=== PATIENT | female | born 1980 | race Caucasian/White ===

== ENCOUNTER 2016-09-30 13:27 | Day surgery (SDC) | payer BC ==
[~2016-09-30] VITALS: Ht 170.2 cm; Wt 84.5 kg
[~2016-09-30 13:27] MED LIST: DAYQUIL PO; NO HOME MEDICATIONS; PERCOCET 5/321 UDTAB PO; PRENATAL VITAMI1 TA5 PO
[2016-09-30 13:46] VITALS: BP 123/85; PULSE 73; TEMP 98.1
[2016-09-30] MEDS ORDERED: ALIGN PO (13:53)
[2016-09-30 15:05] VITALS: BP 98/66; PULSE 69; TEMP 98.3
[2016-09-30 15:20] VITALS: BP 93/62; PULSE 67
[2016-09-30 15:35] VITALS: BP 91/68; PULSE 56
[2016-09-30 15:50] VITALS: BP 91/70; PULSE 69
== END 2016-09-30 16:18 | disposition home or self-care (01) ==
LOC: SDCO 13:27
DX: C18.7 Malignant neoplasm of sigmoid colon (principal); K29.50 Unspecified chronic gastritis without bleeding; K21.9 Gastro-esophageal reflux disease without esophagitis; K92.1 Melena; K56.69 Other intestinal obstruction; D64.9 Anemia, unspecified; E66.9 Obesity, unspecified; Z83.71 Family history of colonic polyps
CPT/HCPCS: J2250; J2405; J3010; J7030

== ENCOUNTER 2016-10-14 15:22 | Inpatient (IN) | payer BC ==
[~2016-10-14] VITALS: Ht 167.6 cm; Wt 83.1 kg
[~2016-10-14 15:22] MED LIST changes: +ALIGN PO
[2016-10-18] VITALS (10 sets, daily range): BP systolic 100–126; BP diastolic 67–96; PULSE 62–102; TEMP 97.4–97.5
[2016-10-18] MEDS ORDERED: PRILOSEC 20MG20 MG PO (09:57)
[2016-10-19 01:07] VITALS: BP 97/56; PULSE 59; TEMP 98.2
[2016-10-19 03:22] VITALS: BP 98/53; PULSE 71; TEMP 98.3
[2016-10-19 07:19] LABS: CALCIUM 9.3 mg/dL (8.4-10.2); CREATININE, serum 0.84 mg/dL (0.52-1.25); MAGNESIUM 2.1 mg/dL (1.6-2.3); PHOSPHOROUS 4.3 mg/dL (2.5-4.5); POTASSIUM 4.3 mmol/L (3.4-5.0)
[2016-10-19 07:21] LABS: HEMATOCRIT 29.7 % (37.0-47.0); HEMOGLOBIN 9.6 g/dl (12.5-16.0)
[2016-10-19 10:58] VITALS: BP 103/66; PULSE 54; TEMP 97.5
[2016-10-19 14:25] VITALS: BP 100/55; PULSE 77; TEMP 98.7
[2016-10-19 18:40] VITALS: BP 121/69; PULSE 81; TEMP 98
[2016-10-19 20:46] VITALS: BP 108/66; PULSE 76; TEMP 98.3
[2016-10-20 00:02] VITALS: BP 113/68; PULSE 86; TEMP 98.6
[2016-10-20 05:39] VITALS: BP 95/68; PULSE 89; TEMP 98.2
[2016-10-20 07:06] LABS: HEMATOCRIT 27.2 % (37.0-47.0); HEMOGLOBIN 8.6 g/dl (12.5-16.0)
[2016-10-20 09:22] VITALS: BP 98/63; PULSE 73; TEMP 98
[2016-10-20] MEDS ORDERED: TYLENOL 325MG325 MG PO (11:18)
[2016-10-20 13:42] VITALS: BP 94/59; PULSE 63; TEMP 98.2
== END 2016-10-20 14:40 | disposition home or self-care (01) | DRG 330 ==
LOC: OR 10-18 08:24 → SURG 10-18 09:45 → OR 10-18 11:36 → SURG 10-18 15:00
PROVIDERS: Surgery
PROC: 8E0W4CZ Robotic Assisted Procedure of Trunk Region, Percutaneous Endoscopic Approach (ICD-10-PCS; 2016-10-18)
PROC: 0DTN0ZZ Resection of Sigmoid Colon, Open Approach (ICD-10-PCS; principal; 2016-10-18 09:45)
PROC: 0UT50ZZ Resection of Right Fallopian Tube, Open Approach (ICD-10-PCS; 2016-10-18 09:45)
DX: C18.7 Malignant neoplasm of sigmoid colon (principal); C77.2 Secondary and unspecified malignant neoplasm of intra-abdominal lymph nodes; N70.11 Chronic salpingitis; D50.0 Iron deficiency anemia secondary to blood loss (chronic)
CPT/HCPCS: A4315; A9284; J0690; J1100; J1170; J1650; J1885; J2270; J2405; J2704; J2765; J3010; J7120

== ENCOUNTER → 2019-04-20 | Outpatient (CLI) | payer BC ==
[~2019-04-20] MED LIST changes: +PRILOSEC 20MG20 MG PO; +TYLENOL 325MG325 MG PO
== END ==
LOC: COL.RAD 12:06
DX: R10.30 Lower abdominal pain, unspecified (principal)